=== PATIENT | female | born 1995 | race Two or more races ===

== ENCOUNTER 2018-05-29 12:20 | Emergency (ER) | payer SELFPAY ==
[~2018-05-29] VITALS: Ht 157.5 cm; Wt 59.0 kg
[~2018-05-29 12:20] MED LIST: PRENCAP61 PO
[2018-05-29 12:45] VITALS: BP 130/82
[2018-05-29] MEDS ORDERED: KETOROLAC TROMETH 60MG/2ML VIAL IM ONE (13:30)
== END 2018-05-29 14:44 | disposition home or self-care (01) ==
LOC: EDBD 12:20 → ER 12:24
DX: S76.012A Strain of muscle, fascia and tendon of left hip, initial encounter (principal); S20.211A Contusion of right front wall of thorax, initial encounter; V43.62XA Car passenger injured in collision with other type car in traffic accident, initial encounter; Y93.89 Activity, other specified; Y99.8 Other external cause status; Y92.410 Unspecified street and highway as the place of occurrence of the external cause
CPT/HCPCS: 71046; 73502; 96372

== ENCOUNTER 2020-09-26 14:54 | Observation (INO) | payer MEDICAID ==
[~2020-09-26] VITALS: Ht 162.6 cm; Wt 59.0 kg
[2020-09-26] MEDS ORDERED: LACTATED RINGER'S 1,000 ML IV ONE (16:00)
[2020-09-26] MEDS: TERBUTALINE SULFATE 1 MG/ML 1ML VIAL SC SCH ×3 (16:11→16:58)
[2020-09-26] MEDS ORDERED: PREN-96 PO (17:24)
[2020-09-26] MEDS ORDERED: NIFEdipine 10 MG CAP PO ONE (17:30)
[2020-09-26] MEDS ORDERED: NIF10C PO (19:57)
== END 2020-09-26 20:17 | disposition home or self-care (01) ==
LOC: LDRP 14:54
PROVIDERS: ADMIT Specialist; ATTEND Specialist
DX: O26.893 Other specified pregnancy related conditions, third trimester (principal); R10.30 Lower abdominal pain, unspecified; R51.9 Headache, unspecified; Z3A.33 33 weeks gestation of pregnancy
CPT/HCPCS: 59025; 76815; 81002; 94760; 96360; 96361; 96372; G0378; J3105

== ENCOUNTER 2020-10-23 04:35 | Inpatient (IN) | payer MEDICAID ==
[~2020-10-23] VITALS: Ht 160 cm; Wt 72.6 kg
[~2020-10-23 04:35] MED LIST changes: +NIF10C PO; +PREN-96 PO
[2020-10-23] MEDS ORDERED: PROMETHAZINE HCL 25 MG/ML 1ML IV PRN (05:15)
[2020-10-23] MEDS ORDERED: LIDOCAINE 2%HCL (LOCAL ANESTH.) INJ 20ML MDV IJ ONE (05:15)
[2020-10-23] MEDS ORDERED: WITCH HAZEL-GLYCERIN PAD TOP PRN (05:15)
[2020-10-23] MEDS ORDERED: BUTORPHANOL TARTRATE 2 MG/1 ML VIAL IV PRN ×2 (05:15)
[2020-10-23] MEDS ORDERED: DERMOPLAST 60ML BOTTLE TOP PRN (05:15)
[2020-10-23] MEDS ORDERED: PHISODERM TOP SOLN 240ML BTL TOP PRN (05:15)
[2020-10-23] MEDS: LACTATED RINGER'S 1,000 ML IV SCH ×4 (05:27→18:38)
[2020-10-23] MEDS ORDERED: TERBUTALINE SULFATE 1 MG/ML 1ML VIAL SC ONE (05:45)
[2020-10-23] MEDS ORDERED: LACT. RINGERS/OXYTOCIN 20UNITS 500 ML IV ONE ×4 (05:45→06:30)
[2020-10-23 06:12] LABS: Urine Bacteria FEW /hpf (None Seen); Urine Blood 3+ /uL (Negative); Urine Specific Gravity 1.014 (1.001-1.035); Urine WBC 165 /hpf (0 - 5)
[2020-10-23 06:18] LABS: Basophils # (auto) 0.1 10 ^3/uL (0-0.2); Basophils % (auto) 0.5 % (0.0-2.0); Eosinophils # (auto) 0.1 10 ^3/uL (0-0.8); Eosinophils % (auto) 0.7 % (0.0-7.0); Hematocrit 33.8 % (36.0-46.0); Hemoglobin 11.6 g/dL (12.2-16.2); Lymphocytes # (auto) 1.8 10 ^3/uL (0.4-5.4); Mean Corpuscular Hgb Conc. 34.4 g/dL (32.0-36.0); Mean Corpuscular Volume 87.4 fL (80.0-100.0); Monocytes # (auto) 0.9 10 ^3/uL (0-1.3); Monocytes % (auto) 9.7 % (0.0-12.0); Neutrophils # (auto) 6.5 10 ^3/uL (1.6-8.6); Neutrophils % (auto) 70.1 % (37.0-80.0); Red Blood Cells 3.86 10^6/uL (4.0-5.20); Red Cell Distribution Width 14.2 % (11.8-14.3); White Blood Cell 9.2 10^3/uL (4.4-10.8)
[2020-10-23 06:25] LABS: INR 0.92 (0.9-1.15); Partial Thromboplastin Time 26.2 sec (23.0-31.2)
[2020-10-23 06:35] LABS: Alcohol, Urine < 3.0 mg/dL (0-10); Amphetamine Screen, Urine NEGATIVE (NEGATIVE); Barbiturate Scree,Urine NEGATIVE (NEGATIVE); Benzodiazephine Screen, Urine NEGATIVE (NEGATIVE); Cannabinoid Screen, Urine NEGATIVE (NEGATIVE); Cocaine Screen, Urine NEGATIVE (NEGATIVE); Opiate Scree,Urine NEGATIVE (NEGATIVE); Phencyclidine Screen, Urine NEGATIVE (NEGATIVE)
[2020-10-23 06:38] LABS: Albumin 2.4 g/dL (3.4-5.0); Calcium 8.4 mg/dL (8.5-10.1); Potassium 3.3 mmol/L (3.5-5.1)
[2020-10-23 06:41] LABS: Bilirubin, Total 0.3 mg/dL (0.2-1.0); Total Protein 5.8 g/dL (6.4-8.2)
[2020-10-23] MEDS ORDERED: ROPIVACAINE HCL 200 ML EPI SCH ×2 (07:00)
[2020-10-23] MEDS ORDERED: ePHEDrine SULFATE 50 MG/ML AMP IV ONE (07:00)
[2020-10-23] MEDS ORDERED: ONDANSETRON HCL 4 MG/2 ML VIAL ONE (07:28)
[2020-10-23] MEDS ORDERED: ONDANSETRON HCL 4 MG/2 ML VIAL IV ONE ×2 (07:30)
[2020-10-23] MEDS ORDERED: LACT. RINGERS/OXYTOCIN 20UNITS 1,000 ML IV SCH (08:30)
[2020-10-23] MEDS ORDERED: MEASLES, MUMPS & RUBELLA VAC(MMRII) 0.5ML SC ONE (23:15)
[2020-10-24 03:05] VITALS: BP 112/59
[2020-10-24] MEDS ORDERED: ACETAMINOPHEN 325 MG TAB PO PRN (03:45)
[2020-10-24] MEDS: IBUPROFEN 600 MG TAB PO PRN ×4 (04:05→22:40)
[2020-10-24 06:06] LABS: RPR Non Reactive (Non Reactive)
[2020-10-24 07:20] VITALS: BP 108/64
[2020-10-24 11:25] VITALS: BP 109/53
[2020-10-24 16:00] VITALS: BP 107/58
[2020-10-24 19:00] VITALS: BP 120/56
[2020-10-24 23:00] VITALS: BP 114/56
[2020-10-25 03:00] VITALS: BP 112/63
[2020-10-25 07:30] VITALS: BP 108/69
[2020-10-25] MEDS: IBUPROFEN 600 MG TAB PO PRN (08:17)
[2020-10-25] MEDS ORDERED: MEASLES, MUMPS & RUBELLA VAC(MMRII) 0.5ML SC ONE (09:14)
== END 2020-10-25 10:34 | disposition home or self-care (01) | DRG 560 ==
LOC: LDRP 04:35 → OBSVTOIN 05:10 → LDRP 05:47
PROVIDERS: ADMIT Specialist; ATTEND Specialist
PROC: 10E0XZZ Delivery of Products of Conception, External Approach (ICD-10-PCS; principal; 2020-10-23)
PROC: 3E0R3BZ Introduction of Anesthetic Agent into Spinal Canal, Percutaneous Approach (ICD-10-PCS; 2020-10-23)
PROC: 00HU33Z Insertion of Infusion Device into Spinal Canal, Percutaneous Approach (ICD-10-PCS; 2020-10-23)
PROC: 10907ZC Drainage of Amniotic Fluid, Therapeutic from Products of Conception, Via Natural or Artificial Opening (ICD-10-PCS; 2020-10-23)
DX: O80 Encounter for full-term uncomplicated delivery (principal); Z20.822 Contact with and (suspected) exposure to COVID-19; Z37.0 Single live birth; Z3A.37 37 weeks gestation of pregnancy
CPT/HCPCS: 36415; 59025; 59409; 62282; 80053; 80307; 81001; 85025; 85610; 85730; 86592; 86850; 86900; 86901; 87426; 94760; 96360; 96361; 96365; 96366; 96372; 96374; 96375; G0378; J2405; J2590